=== PATIENT | male | born 1995 | race Caucasian/White ===

== ENCOUNTER 2021-01-18 13:15 | Emergency (ER) | payer SELFPAY ==
[~2021-01-18] VITALS: Ht 185 cm; Wt 115.0 kg
[2021-01-18 13:55] LABS: BASOPHILS % (AUTO) 0 % (0-10); EOSINOPHILS # (AUTO) 0.2 10^3/uL (0.0-0.3); EOSINOPHILS % (AUTO) 2 % (0-10); HEMATOCRIT 49 % (40-54); HEMOGLOBIN 16.3 g/dL (13.3-17.7); LYMPHOCYTES # (AUTO) 1.9 10^3/uL (1.0-4.0); LYMPHOCYTES % (AUTO) 26 % (12-44); MEAN CORPUSCULAR HEMOGLOBIN 30 pg (25-34); MEAN CORPUSCULAR HGB CONC 33 g/dL (32-36); MEAN CORPUSCULAR VOLUME 89 fL (80-99); MEAN PLATELET VOLUME 10.8 fL (9.0-12.2); MONOCYTES # (AUTO) 0.4 10^3/uL (0.0-1.0); MONOCYTES % (AUTO) 6 % (0-12); NEUTROPHILS # (AUTO) 4.5 10^3/uL (1.8-7.8); NEUTROPHILS % (AUTO) 64 % (42-75); PLATELET COUNT 266 10^3/uL (130-400)
[2021-01-18 14:05] LABS: CHLORIDE 107 MMOL/L (98-107); POTASSIUM 4.3 MMOL/L (3.6-5.0); SODIUM 144 MMOL/L (135-145)
--- NOTE | 2021-01-18 14:06 | ED Chest Pain ---
General Chief Complaint: Chest Pain Stated Complaint: PAIN IN NECK/ CHEST PAIN Nursing Triage Note: PT PRESENTS TO ED FOR CHEST PAIN THAT HAS BEEN GOING ON OVER A YEAR. PT WAS AT WORK WHEN COWORKERS NOTICED THAT PT HAD LAID HIS HEAD BUT THEY COULD NOT GET HIS ATTENTION. 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 WHEN BROTHER ARRIVED IT TOOK A FEW MINUTES TO GET THE PTS ATTENTION AGAIN. AT HOME PTS BLOOD SUGAR WAS TAKEN BY BROTHER AND IT WAS 124, BP 138/87, AND HR 98. PT AMB. TO ROOM 05 WITHOUT DIFFICULTY. Nursing Sepsis Screen: No Definite Risk Source: patient, family Exam Limitations: no limitations History of Present Illness Date Seen by Provider: Jan 18, 2021 Time Seen by Provider: 13:45 Timing/Duration: 4-6 hours Severity/Quality: mild, pressure Location: central, epigastric Radiation: no radiation Activities at Onset: activity Prior CP/Workup: no prior chest pain, no prior cardiac workup ASA po SOCK KNITTER: No NTG SL SOCK KNITTER: No Associated Symptoms: fatigue Allergies and Home Medications Allergies Coded Allergies: erythromycin base (Verified Allergy, Unknown, 01/18/21) Patient does not recall, he was a child. Patient Home Medication List Home Medication List Reviewed: Yes Review of Systems Review of Systems Constitutional: see HPI EENTM: No Symptoms Reported Respiratory: No Symptoms Reported Cardiovascular: Chest Pain Gastrointestinal: Nausea (chronic) Genitourinary: No Symptoms Reported Musculoskeletal: muscle cramps Skin: no symptoms reported Psychiatric/Neurological: Anxiety All Other Systems Reviewed Negative Unless Noted: Yes Past Hhkzhrb-Lzeidr-Ioqyjj Hx Patient Social History Alcohol Use: Occasionally Uses Alcohol Beverage of Choice: Beer Smoking Status: Never a Smoker Recent Infectious Disease Expo: No Recent Hopitalizations: No Seasonal Allergies Seasonal Allergies: No Past Medical History Surgeries: Yes Tonsillectomy Respiratory: No Cardiac: No Neurological: No Genitourinary: No Gastrointestinal: No Musculoskeletal: No Endocrine: No HEENT: No Cancer: No Psychosocial: No Integumentary: No Blood Disorders: No Adverse Reaction/Blood Tranf: No Physical Exam Vital Signs Vital Signs - First Documented Capillary Refill : Less Than 3 Seconds Height, Weight, BMI Height: '" Weight: lbs. oz. kg; 33.00 BMI Method: General Appearance: No Apparent Distress, WD/WN Neck: Normal Inspection, Non Tender, Supple Respiratory: Chest Non Tender, Lungs Clear, Normal Breath Sounds, No Accessory Muscle Use, No Respiratory Distress Cardiovascular: Regular Rate, Rhythm, Normal Peripheral Pulses Gastrointestinal: No Organomegaly, Non Tender, Soft Extremity: Normal Capillary Refill, Normal Inspection, Normal Range of Motion, Non Tender Progress/Results/Core Measures Results/Orders Lab Results Laboratory Tests Test 01/18/21 13:45 Range/Units White Blood Count 7.0 4.3-11.0 10^3/uL Red Blood Count 5.48 4.30-5.52 10^6/uL Hemoglobin 16.3 13.3-17.7 g/dL Hematocrit 49 40-54 % Mean Corpuscular Volume 89 80-99 fL Mean Corpuscular Hemoglobin 30 25-34 pg Mean Corpuscular Hemoglobin Concent 33 32-36 g/dL Red Cell Distribution Width 13.1 10.0-14.5 % Platelet Count 266 130-400 10^3/uL Mean Platelet Volume 10.8 9.0-12.2 fL Immature Granulocyte % (Auto) 0 % Neutrophils (%) (Auto) 64 42-75 % Lymphocytes (%) (Auto) 26 12-44 % Monocytes (%) (Auto) 6 0-12 % Eosinophils (%) (Auto) 2 0-10 % Basophils (%) (Auto) 0 0-10 % Neutrophils # (Auto) 4.5 1.8-7.8 10^3/uL Lymphocytes # (Auto) 1.9 1.0-4.0 10^3/uL Monocytes # (Auto) 0.4 0.0-1.0 10^3/uL Eosinophils # (Auto) 0.2 0.0-0.3 10^3/uL Basophils # (Auto) 0.0 0.0-0.1 10^3/uL Immature Granulocyte # (Auto) 0.0 0.0-0.1 10^3/uL Sodium Level 144 135-145 MMOL/L Potassium Level 4.3 3.6-5.0 MMOL/L Chloride Level 107 98-107 MMOL/L Carbon Dioxide Level 24 21-32 MMOL/L Anion Gap 13 5-14 MMOL/L Blood Urea Nitrogen 12 7-18 MG/DL Creatinine 0.96 0.60-1.30 MG/DL Estimat Glomerular Filtration Rate > 60 BUN/Creatinine Ratio 13 Glucose Level 101 70-105 MG/DL Calcium Level 9.3 8.5-10.1 MG/DL Total Creatine Kinase 130 30-200 U/L Creatine Kinase MB 1.7 <6.6 NG/ML Troponin I < 0.028 <0.028 NG/ML My Orders Orders - DUNCAN RUBIO MD Ed Iv/Invasive Line Start (01/18/21 13:50) Cbc With Automated Diff (01/18/21 13:50) Basic Metabolic Panel (01/18/21 13:50) Troponin I (01/18/21 13:50) Creatine Kinase (01/18/21 13:50) Creatine Kinase Mb (01/18/21 13:50) Ekg Tracing (01/18/21 13:50) Chest 1 View, Ap/Pa Only (01/18/21 13:50) Vital Signs/I&O 01/18/21 01/18/21 13:22 13:22 Temp 36.7 Pulse 65 Resp 20 B/P (MAP) 150/77 (101) O2 Delivery Room Air Room Air Blood Pressure Mean: 101 Progress Progress Note : Time: 14:44 Progress Note Patient's labs, chest x-ray and EKG all reviewed and within normal limits. Patient has no evidence for acute cardiac event at this time. Chest x-ray is normal. EKG is normal. Patient's vital signs have been stable albeit just slightly at the low end of hypertensive. Patient is comfortable with discharge to home. I have strongly advised that he seek out a primary care physician for further evaluation and management of his chronic ongoing complaints. He verbalizes understanding. All questions are sought and answered. Patient is stable for discharge. Initial ECG Impression Date: Jan 18, 2021 Initial ECG Impression Time: 13:28 Initial ECG Rate: 59 Initial ECG Rhythm: Normal Sinus Initial ECG Intervals: Normal Initial ECG Impression: Normal Departure Impression Primary Impression: Chest pain Qualified Codes: R07.9 - Chest pain, unspecified Disposition: 01 HOME, SELF-CARE Condition: Stable Departure-Patient Inst. Decision time for Depature: 14:46 Referrals: [facility] Patient Instructions: Chest Pain That Is Not Caused by the Heart (DC) Add. Discharge Instructions: Drink plenty of fluids to stay well-hydrated. Gkgw-[id number] ibuprofen and/or Tylenol as needed for muscle and body aches. Follow-up with [facility] or your primary care provider of choice. Return to the emergency department for reevaluation if you have any new, concerning or emergent complaints. DUNCAN RUBIO MD Jan 18, 2021 14:06
[2021-01-18 14:07] LABS: CALCIUM 9.3 MG/DL (8.5-10.1); GLUCOSE 101 MG/DL (70-105)
[2021-01-18 14:09] LABS: CARBON DIOXIDE 24 MMOL/L (21-32)
[2021-01-18 14:11] LABS: CREATININE SERUM 0.96 MG/DL (0.60-1.30); GFR ESTIMATED > 60
[2021-01-18 14:12] LABS: BUN/CREATININE RATIO 13
[2021-01-18 14:13] LABS: CREATINE KINASE 130 U/L (30-200)
[2021-01-18 14:19] LABS: CREATINE KINASE MB 1.7 NG/ML (<6.6)
--- NOTE | 2021-01-18 14:39 | Diagnostic Imaging Report ---
Indication: Chest pain and tightness. Time of exam: 2:17 PM No prior studies are available for comparison. The heart size is normal. The pulmonary vascularity is unremarkable. The lungs are clear. No infiltrate, effusion or pneumothorax is detected. Impression: No acute cardiopulmonary process is detected. Dictated by: Dictated on workstation # [id number]
[2021-01-18 14:55] VITALS: BP 143/83
== END 2021-01-18 14:55 | disposition home or self-care (01) ==
LOC: EDUNIT# 13:15 → ER 13:18
DX: R07.9 Chest pain, unspecified (principal)
CPT/HCPCS: 36415; 71045; 80048; 82550; 82553; 84484; 85025; 93005

== ENCOUNTER 2021-11-20 15:10 | Emergency (ER) | payer SELFPAY ==
[~2021-11-20] VITALS: Ht 182 cm; Wt 127.0 kg
[2021-11-20 15:59] LABS: BILIRUBIN,URINE NEGATIVE (NEGATIVE); CLARITY,URINE CLEAR; COLOR,URINE YELLOW; GLUCOSE, URINE (UA) NEGATIVE (NEGATIVE); KETONES,URINE NEGATIVE (NEGATIVE); LEUKOCYTE ESTERASE ,URINE NEGATIVE (NEGATIVE); NITRITE,URINE NEGATIVE (NEGATIVE); PH,URINE 5.5 (5-9); PROTEIN,URINE NEGATIVE (NEGATIVE)
[2021-11-20 16:13] LABS: BACTERIA,URINE NEGATIVE /HPF
[2021-11-20 16:14] LABS: AMPHETAMINE SCREEN, URINE NEGATIVE (NEGATIVE); BARBITURATE SCREEN URINE NEGATIVE (NEGATIVE); BENZODIAZEPINES SCREEN URINE NEGATIVE (NEGATIVE); CANNABINOID SCREEN, URINE NEGATIVE (NEGATIVE); COCAINE SCREEN URINE NEGATIVE (NEGATIVE); METHADONE STAT NEGATIVE (NEGATIVE); OPIATE SCREEN URINE NEGATIVE (NEGATIVE); OXYCODONE STAT NEGATIVE (NEGATIVE); PROPOXYPHENE STAT NEGATIVE (NEGATIVE); TRICYCLIC ANTIDEPRESSANTS SCRE NEGATIVE (NEGATIVE)
[2021-11-20 16:14] LABS: BASOPHILS % (AUTO) 1 % (0-10); EOSINOPHILS # (AUTO) 0.1 10^3/uL (0.0-0.3); EOSINOPHILS % (AUTO) 1 % (0-10); HEMATOCRIT 47 % (40-54); HEMOGLOBIN 15.7 g/dL (13.3-17.7); LYMPHOCYTES # (AUTO) 1.9 10^3/uL (1.0-4.0); LYMPHOCYTES % (AUTO) 21 % (12-44); MEAN CORPUSCULAR HEMOGLOBIN 30 pg (25-34); MEAN CORPUSCULAR HGB CONC 34 g/dL (32-36); MEAN CORPUSCULAR VOLUME 88 fL (80-99); MEAN PLATELET VOLUME 10.6 fL (9.0-12.2); MONOCYTES # (AUTO) 0.8 10^3/uL (0.0-1.0); MONOCYTES % (AUTO) 9 % (0-12); NEUTROPHILS # (AUTO) 6.1 10^3/uL (1.8-7.8); NEUTROPHILS % (AUTO) 69 % (42-75); PLATELET COUNT 278 10^3/uL (130-400); WHITE BLOOD COUNT 8.8 10^3/uL (4.3-11.0)
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
[2021-11-20 16:39] LABS: ALANINE AMINOTRANSFERASE 29 U/L (0-55); ALBUMIN 4.6 GM/DL (3.2-4.5); ALKALINE PHOSPHATASE 92 U/L (40-136); BILIRUBIN,TOTAL 0.3 MG/DL (0.1-1.0); BUN/CREATININE RATIO 9; CALCIUM 9.4 MG/DL (8.5-10.1); CARBON DIOXIDE 17 MMOL/L (21-32); CHLORIDE 109 MMOL/L (98-107); CREATININE SERUM 0.95 MG/DL (0.60-1.30); GFR ESTIMATED 112; GLUCOSE 97 MG/DL (70-105); SALICYLATE < 5.0 MG/DL (5.0-20.0); SODIUM 142 MMOL/L (135-145); TOTAL PROTEIN 7.4 GM/DL (6.4-8.2)
[2021-11-20 16:40] LABS: ACETAMINOPHEN < 10 UG/ML (10-30)
[2021-11-20] MEDS ORDERED: KETOROLAC 30 MG/ML VIAL IVP ONE (17:15)
[2021-11-20] MEDS ORDERED: NS IV 1000 ML 1,000 ML IV ONE (17:15)
[2021-11-21 09:23] VITALS: BP 106/45
== END 2021-11-21 09:23 | disposition short-term general hospital (02) ==
LOC: EDUNIT# 15:10 → ER 15:11
DX: R45.851 Suicidal ideations (principal); F91.8 Other conduct disorders; Z62.810 Personal history of physical and sexual abuse in childhood; Z20.822 Contact with and (suspected) exposure to COVID-19
CPT/HCPCS: 80053; 80306; 81000; 85025; 87636; 93005; 99283; G0480 ×3; 36415; 80320; 80329

== ENCOUNTER 2022-06-10 22:33 | Emergency (ER) | payer SELFPAY ==
[~2022-06-10] VITALS: Ht 177.8 cm; Wt 113.4 kg
--- NOTE | 2022-06-10 22:43 | ED General ---
General Chief Complaint: General Problems/Pain Stated Complaint: WEAKNESS Source of Information: Patient Exam Limitations: No Limitations History of Present Illness Date Seen by Provider: Jun 10, 2022 Time Seen by Provider: 22:30 Initial Comments 26-year-old male presents the emergency department brought in by his brother. On arrival he is somnolent. His brother states he had chest pain prior to arrival. In the bed he will barely keep his eyes open with his head up except for intermittently when he chooses to do so. When asked him to open his eyes he holds them shut against a trying to open them. He did at 1 point tell me he had chest pain for couple days. He will not answer any more my questions at this point. Allergies and Home Medications Allergies Coded Allergies: erythromycin base (Verified Allergy, Unknown, 01/18/21) Patient does not recall, he was a child. Patient Home Medication List Home Medication List Reviewed: Yes Review of Systems Review of Systems Constitutional: no symptoms reported Unable to obtain review of systems due to patient condition Past Lcxmuiw-Ymzadd-Ehlstu Hx Immunizations Up To Date First/Initial COVID19 Vaccinat: NO Second COVID19 Vaccination Adam: NO Seasonal Allergies Seasonal Allergies: No Past Medical History Surgery/Hospitalization HX: Unable to obtain medical, social or surgical history, family history except for that there is already in his medical record due to patient condition Surgeries: Yes Tonsillectomy Respiratory: No Cardiac: No Neurological: No Genitourinary: No Gastrointestinal: No Musculoskeletal: No Endocrine: No HEENT: No Cancer: No Psychosocial: No Integumentary: No Blood Disorders: No Adverse Reaction/Blood Tranf: No Physical Exam Vital Signs Vital Signs - First Documented 06/10/22 22:33 Temp 37.7 Pulse 102 Resp 18 B/P (MAP) 121/74 (90) Pulse Ox 100 O2 Delivery Room Air Capillary Refill : Height, Weight, BMI Height: '" Weight: lbs. oz. kg; 38.00 BMI Method: General Appearance: Other (Somnolent, opens his head up when he chooses to however otherwise his spouse is at the side. Will open his eyes but he is moving all his extremities spontaneously.) HEENT: PERRL/EOMI, Normal ENT Inspection, Pharynx Normal Neck: Full Range of Motion, Normal Inspection, Non Tender, Supple Respiratory: Chest Non Tender, Lungs Clear, Normal Breath Sounds, No Accessory Muscle Use, No Respiratory Distress Cardiovascular: No Edema, No Gallop, No JVD, No Murmur, Normal Peripheral Pulses, Tachycardia Gastrointestinal: Normal Bowel Sounds, No Organomegaly, No Pulsatile Mass, Non Tender, Soft Extremity: Normal Capillary Refill, Normal Inspection, Normal Range of Motion, Non Tender, No Calf Tenderness Neurologic/Psychiatric: Alert, No Motor/Sensory Deficits Skin: Diaphoresis Lymphatic: No Adenopathy Focused Exam Lactate Level 06/10/22 22:43: Lactic Acid Level 1.35 Lactic Acid Level Laboratory Tests Test 06/10/22 22:43 Lactic Acid Level 1.35 MMOL/L (0.50-2.00) Progress/Results/Core Measures Suspected Sepsis SIRS Temperature: Pulse: Respiratory Rate: Laboratory Tests 06/10/22 22:38: White Blood Count 8.9 Blood Pressure / Mean: 06/10/22 22:43: Lactic Acid Level 1.35 Laboratory Tests 06/10/22 22:38: Creatinine 1.23, Platelet Count 218, Total Bilirubin 0.7 Results/Orders Lab Results Laboratory Tests Test 06/10/22 22:38 06/10/22 22:43 06/10/22 22:47 06/10/22 22:52 Range/Units White Blood Count 8.9 4.3-11.0 10^3/uL Red Blood Count 5.70 H 4.30-5.52 10^6/uL Hemoglobin 16.6 13.3-17.7 g/dL Hematocrit 48 40-54 % Mean Corpuscular Volume 84 80-99 fL Mean Corpuscular Hemoglobin 29 25-34 pg Mean Corpuscular Hemoglobin Concent 35 32-36 g/dL Red Cell Distribution Width 12.6 10.0-14.5 % Platelet Count 218 130-400 10^3/uL Mean Platelet Volume 10.5 9.0-12.2 fL Immature Granulocyte % (Auto) 0 % Neutrophils (%) (Auto) 77 H 42-75 % Lymphocytes (%) (Auto) 9 L 12-44 % Monocytes (%) (Auto) 12 0-12 % Eosinophils (%) (Auto) 1 0-10 % Basophils (%) (Auto) 1 0-10 % Neutrophils # (Auto) 6.8 1.8-7.8 10^3/uL Lymphocytes # (Auto) 0.8 L 1.0-4.0 10^3/uL Monocytes # (Auto) 1.1 H 0.0-1.0 10^3/uL Eosinophils # (Auto) 0.1 0.0-0.3 10^3/uL Basophils # (Auto) 0.0 0.0-0.1 10^3/uL Immature Granulocyte # (Auto) 0.0 0.0-0.1 10^3/uL Sodium Level 137 135-145 MMOL/L Potassium Level 3.5 L 3.6-5.0 MMOL/L Chloride Level 104 98-107 MMOL/L Carbon Dioxide Level 19 L 21-32 MMOL/L Anion Gap 14 5-14 MMOL/L Blood Urea Nitrogen 7 7-18 MG/DL Creatinine 1.23 0.60-1.30 MG/DL Estimat Glomerular Filtration Rate 82 BUN/Creatinine Ratio 6 Glucose Level 126 H 70-105 MG/DL Glucometer 110 70-110 MG/DL Calcium Level 9.9 8.5-10.1 MG/DL Corrected Calcium 9.6 8.5-10.1 MG/DL Total Bilirubin 0.7 0.1-1.0 MG/DL Aspartate Amino Transf (AST/SGOT) 81 H 5-34 U/L Alanine Aminotransferase (ALT/SGPT) 120 H 0-55 U/L Alkaline Phosphatase 114 40-136 U/L Troponin I < 0.028 <0.028 NG/ML Total Protein 7.9 6.4-8.2 GM/DL Albumin 4.4 3.2-4.5 GM/DL Lactic Acid Level 1.35 0.50-2.00 MMOL/L Influenza Type A (RT-PCR) Not Detected Not Detecte Influenza Type B (RT-PCR) Not Detected Not Detecte SARS-CoV-2 RNA (RT-PCR) Not Detected Not Detecte Blood Gas Puncture Site RIGHT RADIAL Blood Gas Patient Temperature 37.7 Arterial Blood pH 7.49 H 7.37-7.43 Arterial Blood Partial Pressure CO2 25 L 35-45 MMHG Arterial Blood Partial Pressure O2 107 H 79-93 MMHG Arterial Blood HCO3 19 L 23-27 MMOL/L Arterial Blood Total CO2 19.8 L 21.0-31.0 MMOL/L Arterial Blood Oxygen Saturation 100 94-100 % Arterial Blood Base Excess -3.7 L -2.5-2.5 MMOL/L Krzysztof Test YES-POS Blood Gas Ventilator Setting NO Blood Gas Inspired Oxygen NA Test 06/10/22 22:54 Range/Units Urine Color YELLOW Urine Clarity CLEAR Urine pH 6.5 5-9 Urine Specific [place] 1.010 L 1.016-1.022 Urine Protein NEGATIVE NEGATIVE Urine Glucose (UA) NEGATIVE NEGATIVE Urine Ketones 1+ H NEGATIVE Urine Nitrite NEGATIVE NEGATIVE Urine Bilirubin NEGATIVE NEGATIVE Urine Urobilinogen 0.2 < = 1.0 MG/DL Urine Leukocyte Esterase NEGATIVE NEGATIVE Urine RBC (Auto) NEGATIVE NEGATIVE Urine RBC NONE /HPF Urine WBC NONE /HPF Urine Squamous Epithelial Cells NONE /HPF Urine Crystals NONE /LPF Urine Bacteria TRACE /HPF Urine Casts NONE /LPF Urine Mucus NEGATIVE /LPF Urine Culture Indicated CULTURE PENDING Urine Opiates Screen NEGATIVE NEGATIVE Urine Oxycodone Screen NEGATIVE NEGATIVE Urine Methadone Screen NEGATIVE NEGATIVE Urine Propoxyphene Screen NEGATIVE NEGATIVE Urine Barbiturates Screen NEGATIVE NEGATIVE Ur Tricyclic Antidepressants Screen NEGATIVE NEGATIVE Urine Phencyclidine Screen NEGATIVE NEGATIVE Urine Amphetamines Screen NEGATIVE NEGATIVE Urine Methamphetamines Screen NEGATIVE NEGATIVE Urine Benzodiazepines Screen NEGATIVE NEGATIVE Urine Cocaine Screen NEGATIVE NEGATIVE Urine Cannabinoids Screen NEGATIVE NEGATIVE My Orders Orders - CORINNE GRULLON DO Cbc With Automated Diff (06/10/22 22:38) Comprehensive Metabolic Panel (06/10/22 22:38) Blood Culture (06/10/22 22:38) Urinalysis (06/10/22 22:38) Urine Culture (06/10/22 22:38) Chest 1 View, Ap/Pa Only (06/10/22 22:38) Ed Iv/Invasive Line Start (06/10/22 22:38) Ekg Tracing (06/10/22 22:38) Vital Signs Adult Sepsis Patie Q15M (06/10/22 22:38) O2 (06/10/22 22:38) Remove Rings In Anticipation O (06/10/22 22:38) Lactic Acid Analyzer (06/10/22 22:38) Influenza A And B By Pcr (06/10/22 22:38) Ns Iv 1000 Ml (Sodium Chloride 0.9%) (06/10/22 22:45) Covid 19 Inhouse Test (06/10/22 22:38) Troponin I Benedicto (06/10/22 22:38) Drug Screen Stat (Urine) (06/10/22 22:38) Arterial Blood Gas (06/10/22 22:52) Vital Signs/I&O 06/10/22 22:33 Temp 37.7 Pulse 102 Resp 18 B/P (MAP) 121/74 (90) Pulse Ox 100 O2 Delivery Room Air Capillary Refill : Departure Communication (Admissions) Patient is now alert, oriented. He tells me he can feel the right ear this evening and then "freaked out." He states he has had this happen in the past where he would "freak out." That happened most recently after work and he sat in his truck for a little while until it passed. He has not seen his primary doctor for these episodes. He denies any chest pain, shortness of breath, changes in vision, no upper or lower extremity weakness numbness or tingling. Symptoms most consistent with anxiety or panic type episode at this time. There is no evidence for lateral bacterial infection, hypo or hyperglycemia, electrolyte derangement, dehydration. No evidence for ACS or other cardiac abnormality. His tachycardia has resolved with rest alone. He is discharged home in stable condition with supportive care and close primary care follow-up Impression Primary Impression: Chest pain Qualified Codes: R07.9 - Chest pain, unspecified Disposition: HOME, SELF-CARE Condition: Stable Departure-Patient Inst. Referrals: NO,LOCAL PHYSICIAN (PCP/Family) Primary Care Physician Patient Instructions: Anxiety, Adult (DC) Add. Discharge Instructions: Please follow-up with your primary doctor should these episodes continue to occur. Return to the emergency department for any severe concerns. All discharge instructions reviewed with patient and/or family. Voiced understanding. CORINNE GRULLON DO Jun 10, 2022 22:43
[2022-06-10 22:44] LABS: BASOPHILS % (AUTO) 1 % (0-10); EOSINOPHILS # (AUTO) 0.1 10^3/uL (0.0-0.3); EOSINOPHILS % (AUTO) 1 % (0-10); HEMATOCRIT 48 % (40-54); HEMOGLOBIN 16.6 g/dL (13.3-17.7); LYMPHOCYTES # (AUTO) 0.8 10^3/uL (1.0-4.0); LYMPHOCYTES % (AUTO) 9 % (12-44); MEAN CORPUSCULAR HEMOGLOBIN 29 pg (25-34); MEAN CORPUSCULAR HGB CONC 35 g/dL (32-36); MEAN CORPUSCULAR VOLUME 84 fL (80-99); MEAN PLATELET VOLUME 10.5 fL (9.0-12.2); MONOCYTES # (AUTO) 1.1 10^3/uL (0.0-1.0); MONOCYTES % (AUTO) 12 % (0-12); NEUTROPHILS # (AUTO) 6.8 10^3/uL (1.8-7.8); NEUTROPHILS % (AUTO) 77 % (42-75); PLATELET COUNT 218 10^3/uL (130-400); WHITE BLOOD COUNT 8.9 10^3/uL (4.3-11.0)
[2022-06-10] MEDS ORDERED: NS IV 1000 ML 1,000 ML IV SCH (22:45)
[2022-06-10 22:55] LABS: ALBUMIN 4.4 GM/DL (3.2-4.5); CHLORIDE 104 MMOL/L (98-107); POTASSIUM 3.5 MMOL/L (3.6-5.0); SODIUM 137 MMOL/L (135-145)
[2022-06-10 22:56] LABS: CALCIUM 9.9 MG/DL (8.5-10.1)
[2022-06-10 22:58] LABS: GLUCOSE 126 MG/DL (70-105); TOTAL PROTEIN 7.9 GM/DL (6.4-8.2)
[2022-06-10 22:59] LABS: BILIRUBIN,TOTAL 0.7 MG/DL (0.1-1.0); CARBON DIOXIDE 19 MMOL/L (21-32)
[2022-06-10 23:00] LABS: ABG BASE EXCESS -3.7 MMOL/L (-2.5-2.5); ABG OXYGEN SATURATION 100 % (94-100); ABG PCO2 25 MMHG (35-45); ABG PH 7.49 (7.37-7.43); ABG PO2 107 MMHG (79-93); ABG TCO2 19.8 MMOL/L (21.0-31.0)
[2022-06-10 23:01] LABS: ALKALINE PHOSPHATASE 114 U/L (40-136); CREATININE SERUM 1.23 MG/DL (0.60-1.30); GFR ESTIMATED 82
[2022-06-10 23:02] LABS: BILIRUBIN,URINE NEGATIVE (NEGATIVE); CLARITY,URINE CLEAR; COLOR,URINE YELLOW; GLUCOSE, URINE (UA) NEGATIVE (NEGATIVE); KETONES,URINE 1+ (NEGATIVE); LEUKOCYTE ESTERASE ,URINE NEGATIVE (NEGATIVE); NITRITE,URINE NEGATIVE (NEGATIVE); PH,URINE 6.5 (5-9); PROTEIN,URINE NEGATIVE (NEGATIVE)
[2022-06-10 23:02] LABS: BUN/CREATININE RATIO 6
[2022-06-10 23:03] LABS: ALLENS TEST YES-POS
[2022-06-10 23:04] LABS: PATIENT TEMP 37.7; VENTILATOR NO
[2022-06-10 23:04] LABS: ALANINE AMINOTRANSFERASE 120 U/L (0-55)
[2022-06-10 23:12] LABS: BACTERIA,URINE TRACE /HPF
[2022-06-10 23:13] LABS: AMPHETAMINE SCREEN, URINE NEGATIVE (NEGATIVE); BARBITURATE SCREEN URINE NEGATIVE (NEGATIVE); BENZODIAZEPINES SCREEN URINE NEGATIVE (NEGATIVE); CANNABINOID SCREEN, URINE NEGATIVE (NEGATIVE); COCAINE SCREEN URINE NEGATIVE (NEGATIVE); METHADONE STAT NEGATIVE (NEGATIVE); OPIATE SCREEN URINE NEGATIVE (NEGATIVE); OXYCODONE STAT NEGATIVE (NEGATIVE); PROPOXYPHENE STAT NEGATIVE (NEGATIVE); TRICYCLIC ANTIDEPRESSANTS SCRE NEGATIVE (NEGATIVE)
[2022-06-10 23:55] VITALS: BP 132/70
--- NOTE | 2022-06-11 06:26 | Diagnostic Imaging Report ---
INDICATION: Altered mental status. Comparison is made with prior examination of 01/18/2021. FINDINGS: The heart size, mediastinal configuration, and pulmonary vascularity are within normal limits. There is no pleural effusion, pneumothorax, or pneumonia. The osseous structures are unremarkable. IMPRESSION: No acute cardiopulmonary abnormality. Dictated by: Dictated on workstation # [id number]
== END 2022-06-10 23:55 | disposition home or self-care (01) ==
LOC: EDUNIT# 22:33 → ER 22:34
DX: R07.9 Chest pain, unspecified (principal); Z28.310 Unvaccinated for COVID-19; Z20.822 Contact with and (suspected) exposure to COVID-19
CPT/HCPCS: 36415; 71045; 80053; 80306; 81000; 82805; 82947; 83605; 84484; 85025; 87040; 87088; 87636; 93005